=== PATIENT | female | born 1955 | race Caucasian/White ===

== ENCOUNTER 2018-09-20 16:17 | Outpatient (REF) | payer BC, SELFPAY ==
--- NOTE | 2018-09-20 13:30 | PAPFT_PTH ---
PATIENT: SINGH SHUKLA LOC: [facility] U#:[id number] AGE/SX: 63/F ROOM: RE09/20/[address]: Olga Hutchison : 1955 BED: DIS: 09/20/2018 SPEC #: [id number] RECD: 09/23/18 12:49 STATUS: DONNIE REMarko #: [id number] LOPEZ: 09/20/18 13:[address]: Olga Hutchison DEPT: [facility] Cytology RECD BY: Zuleika Ruiz Tissues: 1 - CX/ENDOCX FOR PAP SMEARS Procedures: PAP THIN PREP/[facility] Screening HPV DNA PROBE Comments: [id number]
== END 2018-09-20 16:37 ==
LOC: NCHCN 16:17
PROVIDERS: PCP Family Medicine; Visit Provider Family Medicine
DX: Z00.00 Encounter for general adult medical examination without abnormal findings (principal); Z12.4 Encounter for screening for malignant neoplasm of cervix; Z11.51 Encounter for screening for human papillomavirus (HPV); Z01.419 Encounter for gynecological examination (general) (routine) without abnormal findings
CPT/HCPCS: 88142; 87624

== ENCOUNTER 2018-10-09 11:13 | Outpatient (REF) | payer BC, SELFPAY ==
[2018-10-09 13:33] LABS: HCT 44.1 % (36.0-46.0); HGB 14.1 g/dL (12.0-15.5); Mean Corpuscular Volume 93.8 fL (80-95); Mean Platelet Volume 11.7 fL (8.0-11.0); Platelet Count 182 x1000/uL (130-400); RBC Distribution Width 14.4 % (11.7-14.6); White Blood Cell Count 5.05 k/cumm (4.4-10.8)
[2018-10-09 13:52] LABS: ALT 20 U/L (12-78); AST 12 U/L (15-37); Albumin 3.8 g/dL (3.4-5.0); Alkaline Phosphatase 48 U/L (46-116); Anion Gap 10.5 mmol/L (3-11); BUN 20 mg/dL (7-18); Bilirubin, Total 0.3 mg/dL (0.2-1.0); CO2 24.5 mmol/L (21.0-32.0); CREATININE 1.05 mg/dL (0.55-1.02); Calcium 8.8 mg/dL (8.5-10.1); Calculated LDL 151 mg/dL; Chloride 110 mmol/L (98-107); Cholesterol 237 mg/dL (50-200); Estimated GFR 52.93 (mL/min/1.73m2); Glucose 99 mg/dL (70-100); HDL Cholesterol 68 mg/dL (40-60); Potassium 3.9 mmol/L (3.5-5.1); Sodium 145 mmol/L (136-145); Total Protein 6.9 g/dL (6.4-8.2); Triglyceride 90 mg/dL (30-150)
== END 2018-10-09 11:33 ==
LOC: NCHCN 11:13
PROVIDERS: PCP Family Medicine; Visit Provider Family Medicine
DX: E78.00 Pure hypercholesterolemia, unspecified (principal); Z00.00 Encounter for general adult medical examination without abnormal findings
CPT/HCPCS: 80053; 80061; 83721; 85027

== ENCOUNTER 2020-09-08 10:52 | Outpatient (REF) | payer BC, SELFPAY ==
[2020-09-08 13:37] LABS: ALT 28 U/L (14-59); AST 16 U/L (15-37); Albumin 3.6 g/dL (3.4-5.0); Alkaline Phosphatase 41 U/L (46-116); Anion Gap 6.4 mmol/L (3-11); BUN 18 mg/dL (7-18); Bilirubin, Total 0.4 mg/dL (0.2-1.0); CO2 28.6 mmol/L (21.0-32.0); CREATININE 1.2 mg/dL (0.55-1.02); Calculated LDL 199 mg/dL (<100); Chloride 110 mmol/L (98-107); Cholesterol 290 mg/dL (<200); Estimated GFR 45.09 (mL/min/1.73m2); Glucose 110 mg/dL (74-106); HDL Cholesterol 72 mg/dL (40-60); Potassium 4.6 mmol/L (3.5-5.1); Sodium 145 mmol/L (136-145); TSH (W/Ref FT4) 2.59 uIU/mL (0.36-3.74); Total Protein 6.8 g/dL (6.4-8.2); Triglyceride 99 mg/dL (<150)
== END 2020-09-08 10:53 | disposition home or self-care (01) ==
LOC: NCHCN 10:52
PROVIDERS: PCP Family Medicine; Visit Provider Family Medicine
DX: E78.00 Pure hypercholesterolemia, unspecified (principal); M79.7 Fibromyalgia; E66.9 Obesity, unspecified
CPT/HCPCS: 80053; 80061; 84443